=== PATIENT | male | born 1965 | race Caucasian/White ===

== ENCOUNTER → 2018-01-02 06:44 | Outpatient (CLI) | payer OTHER ==
[~2018-01-02 06:44] MED LIST: KETO10TA2 PO; SEPTRA DS TABLE1 TAB PO; TORADOL10 MG PO; VASOTEC10 MG PO
== END | disposition home or self-care (01) ==
LOC: LAB 06:44
DX: I10 Essential (primary) hypertension (principal); E11.9 Type 2 diabetes mellitus without complications; E03.9 Hypothyroidism, unspecified; E78.2 Mixed hyperlipidemia; M81.0 Age-related osteoporosis without current pathological fracture; N40.0 Benign prostatic hyperplasia without lower urinary tract symptoms; M12.89 Other specific arthropathies, not elsewhere classified, multiple sites; M19.90 Unspecified osteoarthritis, unspecified site

== ENCOUNTER 2018-01-03 14:20 | Outpatient (CLI) | payer OTHER | END 2018-01-03 14:23 | disposition home or self-care (01) | LOC: SONOGRAMA 14:20 | DX: R10.9 Unspecified abdominal pain (principal) ==

== ENCOUNTER 2018-01-04 08:36 | Outpatient (CLI) | payer OTHER | END 2018-01-04 12:13 | disposition home or self-care (01) | LOC: TOM 08:36 | DX: J44.9 Chronic obstructive pulmonary disease, unspecified (principal); M19.90 Unspecified osteoarthritis, unspecified site; M12.9 Arthropathy, unspecified ==

== ENCOUNTER 2020-10-19 09:59 | Outpatient (CLI) | payer OTHER | END 2020-10-19 15:40 | disposition home or self-care (01) | LOC: EKG 09:59 | DX: R94.31 Abnormal electrocardiogram [ECG] [EKG] (principal); I10 Essential (primary) hypertension ==

== ENCOUNTER 2024-11-16 14:17 | Emergency (ER) | payer OTHER ==
[~2024-11-16] VITALS: Ht 185.4 cm; Wt 98.0 kg
== END 2024-11-16 16:23 | disposition home or self-care (01) ==
LOC: ER 14:17
DX: B35.9 Dermatophytosis, unspecified (principal)